=== PATIENT | male | born 1980 | race Caucasian/White ===

== ENCOUNTER 2019-11-11 13:58 | Emergency (ER) | payer BC, OTHER ==
--- NOTE | 2019-11-11 14:00 | ED General ---
General Stated Complaint: RT LEG LAC Source of Information: Patient History of Present Illness Date Seen by Provider: Nov 11, 2019 Time Seen by Provider: 14:00 Initial Comments Patient is a 39-year-old male who comes to the emergency department with injury to the posterior left leg. The patient was working around some construction site when he accidentally scratched along an exposed screw injuring the back of the left distal thigh near the popliteal fossa. Tetanus immunization is up-to-date. Allergies and Home Medications Allergies Coded Allergies: No Known Drug Allergies (Unverified , 11/11/19) Patient Home Medication List Home Medication List Reviewed: Yes Review of Systems Review of Systems Constitutional: no symptoms reported EENTM: no symptoms reported Respiratory: no symptoms reported Cardiovascular: no symptoms reported Gastrointestinal: no symptoms reported Musculoskeletal: no symptoms reported Skin: see HPI All Other Systems Reviewed Negative Unless Noted: Yes Physical Exam Vital Signs Vital Signs - First Documented 11/11/19 14:08 Temp 36.0 Pulse 78 Resp 16 B/P (MAP) 123/84 (97) Pulse Ox 99 Capillary Refill : Height, Weight, BMI Height: '" Weight: lbs. oz. kg; BMI Method: General Appearance: No Apparent Distress, WD/WN HEENT: PERRL/EOMI Neck: Full Range of Motion Respiratory: No Accessory Muscle Use Cardiovascular: Regular Rate, Rhythm Extremity: Normal Capillary Refill, Non Tender Skin: Normal Color, Warm/Dry (2 cm flap-like laceration over the posterior aspect of the right leg just along the medial aspect of the popliteal fossa. Laceration extends through the skin and into subcutaneous tissue but no tendons or muscle bellies are visible when explored. All flexion and extension mechanisms intact about the knee) Procedures/Interventions Wound Location: Lower Extremities Wound's Depth, Shape: irregular, flap Wound Explored: clean Anesthesia: 1% Lidocaine Wound Debrided: minimal Suture: Ethlion Suture Size: 3-0 Number of Sutures: 9 Sterile Dressing Applied?: Yes Tolerates well without difficulty. 9 simple interrupted sutures are placed. Skin edges were difficult to approximate as there was a significant piece of skin missing Progress/Results/Core Measures Suspected Sepsis SIRS Temperature: Pulse: Respiratory Rate: Blood Pressure / Mean: Results/Orders My Orders Orders - SENG LEON DO Lidocaine 1% Inj 20 Ml (Xylocaine 1% Inj (11/11/19 14:03) Lidocaine 1% Inj 20 Ml (Xylocaine 1% Inj (11/11/19 14:15) Medications Given in ED Current Medications Medications Dose Ordered Sig/Lino Route Start Time Stop Time Status Last Admin Dose Admin Lidocaine HCl 20 ml STK-MED ONCE .ROUTE 11/11/19 14:03 11/11/19 14:06 DC 11/11/19 14:08 20 ML Vital Signs/I&O 11/11/19 14:08 Temp 36.0 Pulse 78 Resp 16 B/P (MAP) 123/84 (97) Pulse Ox 99 Capillary Refill : Progress Note : Time: 14:00 Progress Note Patient evaluated in the emergency department for laceration described above. Sutures were placed. Patient discharged home with wound care precautions and will come back to the ER in 10-12 days for suture removal. Departure Impression Primary Impression: Laceration of left leg Disposition: 01 HOME, SELF-CARE Condition: Improved SENG LEON DO Nov 11, 2019 14:00
[2019-11-11] MEDS ORDERED: LIDOCAINE 1% INJ 20 ML 20 ML VIAL ONE (14:03)
--- OUTSIDE RECORDS SUMMARY | 2019-11-11 14:05 | XMS REPORT | Continuity of Care Document ---
Author Organization Unknown Address Unknown Phone Unavailable Allergies There is no data. Medications There is no data. Problems There is no data. Procedures There is no data. Results There is no data. Encounters ACCT No. Visit Date/Time Discharge Status Pt. Type Provider Facility Loc./Unit Complaint [id number] 09/08/2018 13:20:00 09/08/2018 23:59: 59 [facility] Outpatient BRADLEY BAUTISTA LAC [facility]
[2019-11-11 14:08] VITALS: BP 123/84
[2019-11-11] MEDS ORDERED: LIDOCAINE 1% INJ 20 ML 20 ML VIAL INJ ONE (14:15)
== END 2019-11-11 14:28 | disposition home or self-care (01) ==
LOC: EDUNIT# 13:58 → ER FS 14:00
DX: S71.112A Laceration without foreign body, left thigh, initial encounter (principal); W26.8XXA Contact with other sharp object(s), not elsewhere classified, initial encounter

== ENCOUNTER 2019-11-21 14:37 | Emergency (ER) | payer BC ==
[~2019-11-21] VITALS: Ht 177 cm; Wt 75.0 kg
[2019-11-21 14:50] VITALS: BP 132/68
--- OUTSIDE RECORDS SUMMARY | 2019-11-21 16:23 | XMS REPORT | Continuity of Care Document ---
Author Organization Unknown Address Unknown Phone Unavailable Allergies Active Description Code Type Severity Reaction Onset Reported/Identified Relationship to Patient Clinical Status Yes No Known Drug Allergies [id number] Drug Allergy Unknown N/A 11/11/2019 Medications There is no data. Problems Date Dx Coded Attending Type Code Diagnosis Diagnosed By 11/13/2019 SENG LEON DO Ot S71.112A LACERATION WITHOUT FOREIGN BODY, LEFT TH 11/13/2019 SENG LEON DO Ot W26.8XXA CONTACT WITH OTHER SHARP OBJECT(S), NEC, 11/17/2019 SENG LEON DO Ot S71.112A LACERATION WITHOUT FOREIGN BODY, LEFT TH 11/17/2019 SENG LEON DO Ot W26.8XXA CONTACT WITH OTHER SHARP OBJECT(S), NEC, Procedures There is no data. Results There is no data. Encounters ACCT No. Visit Date/Time Discharge Status Pt. Type Provider Facility Loc./Unit Complaint [id number] 09/08/2018 13:20:00 09/08/2018 23:59: 59 [facility] [id number] 11/21/2019 14:38:00 020 14:50:00 DIS Emergency KEENAN MTZ DO [facility] FS SUTURE REMOVAL [id number] 11/11/2019 14:00:00 020 14:28:00 DIS Outpatient SENG LEON DO [facility] FS RT LEG LAC
== END 2019-11-21 14:50 | disposition home or self-care (01) ==
LOC: EDUNIT# 14:37 → ER FS 14:38
DX: S81.811D Laceration without foreign body, right lower leg, subsequent encounter (principal); X58.XXXD Exposure to other specified factors, subsequent encounter

== ENCOUNTER → 2021-12-17 | Outpatient (CLI) | payer BC ==
--- NOTE | 2021-12-17 10:24 | Diagnostic Imaging Report ---
MRI RT UPPER EXT JOINT W/O Technique: Multiplanar, multisequence MR imaging of the right shoulder was performed without contrast. Comparison: None available. Indication: Right shoulder pain Findings: Rotator cuff: Full-thickness tear in the anterior one half of the supraspinatus measures 1.5 cm in diameter and the stump is retracted to the level of the mid humeral head. Infraspinatus has low-grade partial-thickness interstitial tear within its insertional fibers. Teres minor is normal. Subscapularis is intact. No rotator cuff muscle atrophy. Glenoid labrum: No chondrolabral separation or para-labral cyst. Long head of biceps: Long head of biceps is normally positioned within the bicipital groove. The intracapsular segment is intact. Bones and cartilage: Humeral head is normal in morphology without fracture or focal osseous lesion. No glenohumeral chondromalacia. The acromioclavicular joint is normal in alignment without significant degenerative change. Soft tissues: No glenohumeral joint effusion. No MRI findings to suggest adhesive capsulitis. No fluid or inflammatory like signal within the subacromial/subdeltoid space to indicate bursitis. IMPRESSION: 1. Full-thickness tear in the anterior one half of the supraspinatus has the stump retracted to the mid humeral head but no muscle belly atrophy. 2. Infraspinatus tendinopathy with low-grade partial-thickness interstitial tear. 3. Long head of biceps is intact. Dictated by: Dictated on workstation # [id number]
== END ==
LOC: RAD 07:41
PROVIDERS: ATTEND Orthopaedic Surgery Sports Medicine
DX: M75.121 Complete rotator cuff tear or rupture of right shoulder, not specified as traumatic (principal)
CPT/HCPCS: 73221